=== PATIENT | male | born 1975 | race Caucasian/White ===

== ENCOUNTER → 2020-10-11 | Outpatient (CLI) | payer OTHER ==
[~2020-10-11] MED LIST: BETAPACE80 MG PO; DILT-XR240 MG PO; ELIQUIS5 MG PO; NORCO 5-325 TA1 EACH PO; SYNTHROID100 MCG PO; VITAMIN D250000 UNIT PO
== END ==
LOC: HEART 5 09:13
DX: I48.19 Other persistent atrial fibrillation (principal); I11.9 Hypertensive heart disease without heart failure; I37.1 Nonrheumatic pulmonary valve insufficiency; E66.9 Obesity, unspecified
CPT/HCPCS: 93306